=== PATIENT | male | born 1960 | race Caucasian/White ===

== ENCOUNTER 2018-04-21 11:50 | Emergency (ER) | payer MEDICAID ==
[~2018-04-21] VITALS: Ht 160 cm; Wt 90.9 kg
[2018-04-21 12:00] VITALS: Ht 160 cm; Wt 90.9 kg
[2018-04-21] MEDS ORDERED: NORCO 7.5/325 T1 TA1 PO (13:45)
[2018-04-21 15:48] VITALS: BP 134/79
== END 2018-04-21 14:40 | disposition home or self-care (01) ==
LOC: D.ER 11:50
DX: S46.002A Unspecified injury of muscle(s) and tendon(s) of the rotator cuff of left shoulder, initial encounter (principal); W18.30XA Fall on same level, unspecified, initial encounter; Y93.89 Activity, other specified; Y92.019 Unspecified place in single-family (private) house as the place of occurrence of the external cause; T14.8XXA Other injury of unspecified body region, initial encounter; I10 Essential (primary) hypertension; F17.200 Nicotine dependence, unspecified, uncomplicated

== ENCOUNTER → 2018-05-05 09:33 | Outpatient (CLI) | payer MEDICAID ==
[2018-04-21 12:00] VITALS: BMI 35.5
[~2018-05-05 09:33] MED LIST: NORCO 7.5/325 T1 TA1 PO
== END | disposition home or self-care (01) ==
LOC: D.RAD 09:30
DX: M25.512 Pain in left shoulder (principal)